=== PATIENT | male | born 1945 | race Caucasian/White ===

== ENCOUNTER 2017-05-14 13:42 | Emergency (ER) | payer MEDICARE, BC ==
[2017-05-14] MEDS ORDERED: 0.9 % SODIUM CHLORIDE 1,000 ML BAG IV ONE (13:48)
[2017-05-14] MEDS ORDERED: METHYLPREDNISOLONE PF 125MG/VIAL IVP ONE (13:48)
--- NOTE | 2017-05-14 13:49 | Emergency Department Record ---
History of Present Illness - General Stated Complaint: DIZZY Time Seen by Provider: 05/14/17 13:42 Source: Patient, EMS Mode of Arrival: Ambulatory Limitations: No limitations Travel/Exposure to [place] Within 21 Days of Symptoms: No - History of Present Illness Initial Comments: 72 yo female presents with syncope. The patient was stung by a bee about one hour ago. He stated he did not feel well afterward. He became lightheaded. He was outside walking the dog when he was stung. He came home and felt weak, lightheaded and dizzy. He did not get injured when he passed out. No report of seizure. No history of syncope. The bee stung him behind the left ear. NO hives. No chest pain. He has a history of HTN. No history of anaphylaxis. MD Complaint: Collapsed, Loss of consciousness -: Minutes(s) Prodromal Symptoms: Lightheaded Description of Event: Incontinence Witnessed: Yes - by bystander Injuries Sustained Associated with Event: None Current Symptoms: Lightheaded Context: Other (After a bee sting) Treatments Prior to Arrival: None, IV fluids - Related Data Home Medications Medication Instructions Recorded Confirmed Last Taken Amlodipine Besylate [Norvasc] 10 mg PO DAILY 05/14/17 05/14/17 05/14/17 Aspirin [Adult Low Dose Aspirin EC] 81 mg PO DAILY 05/14/17 05/14/17 05/14/17 Atorvastatin Calcium [Lipitor] 20 mg PO DAILY 05/14/17 05/14/17 05/14/17 Cetirizine HCl [Zyrtec] 10 mg PO DAILY 05/14/17 05/14/17 05/14/17 Fluticasone Propionate [Flonase] 2 spray EACH NARES DAILY 05/14/17 05/14/17 Lisinopril/Hydrochlorothiazide 1 each PO 05/14/17 05/14/17 [Lisinopril-Hctz 20-12.5 mg Tab] Omeprazole 20 mg PO 05/14/17 05/14/17 Previous Rx's Medication Instructions Recorded Diphenhydramine HCl [Benadryl] 25 mg PO Q6H #20 cap 05/14/17 Epinephrine [Epipen] 0.3 mg IM ASDIR PRN #2 syr 05/14/17 Prednisone [Prednisone 20Mg] 20 mg PO BID #14 tab 05/14/17 Allergies Allergy/AdvReac Type Severity Reaction Status Date / Time No Known Drug Allergies Allergy Verified 05/14/17 13:46 Review of Systems Constitutional: Denies: Chills, Fever, Malaise, Weakness Eyes: Denies: Eye discharge, Eye pain ENT: Denies: Congestion, Throat pain Respiratory: Reports: Dyspnea (initially felt some shortness of breath, now resolved). Denies: Cough, Hemoptysis, Stridor, Wheezes Cardiovascular: Reports: Syncope. Denies: Chest pain, Palpitations Endocrine: Denies: Fatigue, Polydipsia, Polyuria Gastrointestinal: Denies: Abdominal pain, Diarrhea, Nausea, Vomiting Genitourinary: Reports: As per HPI, Incontinence Musculoskeletal: Denies: Back pain, Joint swelling, Myalgia Skin: Denies: Bruising, Change in color, Rash Neurological: Reports: Vertigo. Denies: Headache, Numbness, Weakness Psychiatric: Denies: Anxiety Hematological/Lymphatic: Denies: Blood Clots, Easy bleeding, Easy bruising, Swollen glands Physical Exam - General General Appearance: Alert, Oriented x3, Cooperative, No acute distress Limitations: No limitations - Head Head exam: negative: Normal inspection (local sting site behind the left ear) Image of Face/Head: 1 - site of bee sting - Eye Eye exam: Normal appearance, PERRL. negative: Conjunctival injection, Periorbital swelling - ENT ENT exam: Normal exam, Mucous membranes moist Ear exam: Normal external inspection Nasal Exam: Normal inspection Mouth exam: Normal external inspection Throat exam: Normal inspection - Neck Neck exam: Normal inspection, Full ROM. negative: Tenderness - Respiratory Respiratory exam: Normal lung sounds bilaterally. negative: Respiratory distress - Cardiovascular Cardiovascular Exam: Regular rate, Normal rhythm, Normal heart sounds - GI/Abdominal GI/Abdominal exam: Soft. negative: Tenderness - Rectal Rectal exam: Deferred - exam: Deferred - Extremities Extremities exam: Normal inspection, Full ROM, Normal capillary refill. negative: Tenderness - Back Back exam: Reports: Normal inspection, Full ROM. Denies: Muscle spasm, Rash noted, Tenderness - Neurological Neurological exam: Alert, Normal gait, Oriented X3 - Psychiatric Psychiatric exam: Normal affect, Normal mood - Skin Skin exam: Other (local erythema at the site of the bee sting) Course - Reevaluation(s) Reevaluation #1: EKG 13:49 NSR rate of 97, intervals normal, axis normal, ST normal. No comparison 05/14/17 13:55 Reevaluation #2: The labs were reviewed No acute changes on the CBC and CMP. CR 1.3. 05/14/17 14:21 The Troponin is normal 05/14/17 14:31 Reevaluation #3: The patient continues to do well Will watch 4 hours to recheck enzymes given the syncope. He is asymptomatic. Mild swelling behind the left ear. No changes. 05/14/17 15:38 The patient continues to do well Waiting for 2nd set of cardiac enzymes 05/14/17 17:48 The patient is very eager to go He is doing very well without symptoms Repeat Troponin is negative His lungs are clear The site of the sting is very minimal He denies any symptoms 05/14/17 18:16 He will be prescribed Prednisone, Benadryl and Epipens 05/14/17 18:16 05/14/17 18:18 Medical Decision Making - Lab Data Result diagrams: 05/14/17 13:30 05/14/17 13:30 Disposition Disposition: Discharge Clinical Impression: Bee sting Qualifiers: Encounter type: initial encounter Injury intent: undetermined intent Qualified Code(s): T63.444A - Toxic effect of venom of bees, undetermined, initial encounter Syncope Qualifiers: Syncope type: unspecified Qualified Code(s): R55 - Syncope and collapse Disposition: Home, Self-Care Condition: (1) Good Instructions: Insect Bite or Sting (ED), Syncope (ED) Additional Instructions: Return if you have any return of dizziness, pass out, any new concerns or symptoms Take the Prednisone daily as directed You may take Benadryl 25mg every 4-6 hours if you have mild itching Call your doctor for close follow up this week Prescriptions: Diphenhydramine HCl [Benadryl] 25 mg PO Q6H #20 cap Epinephrine [Epipen] 0.3 mg IM ASDIR PRN #2 syr PRN Reason: Anaphylaxis Prednisone [Prednisone 20Mg] 20 mg PO BID #14 tab Time of Disposition: 18:18 Quality - Quality Measures Quality Measures: N/A - Blood Pressure Screening Does Patient Have Any of the Following: No Blood Pressure Classification: Pre-Hypertensive BP Reading Systolic Measurement: 125 Diastolic Measurement: 80 Screening for High Blood Pressure: < Pre-Hypertensive BP, F/U Documented > [ [id number]] Pre-Hypertensive Follow-up Interventions: Referral to alternative/primary care provider.
[2017-05-14 13:51] LABS: BASO % 0.1 % (0-6); EOS % 0.8 % (0-6); GRAN % 62.1 % (47-80); HEMATOCRIT 42.4 % (42.0-52.0); HEMOGLOBIN 14.7 gm/dl (14.0-18.0); LYMPH % 32.9 % (16-45); MEAN CELL VOLUME 95.5 fl (81-97); MEAN CORPUSCULAR HEMOGLOBIN 33.1 pg (27-33); MEAN CORPUSCULAR HGB CONC 34.7 g/dl (32-36); MONO % 4.1 % (0-9); PLATELET COUNT 353 K/uL (130-400); RED BLOOD COUNT 4.44 M/uL (4.40-5.70); RED CELL DISTRIBUTION WIDTH 13.9 % (11.5-14.5); WHITE BLOOD COUNT W/O DIFF 8.6 K/uL (4.2-12.2)
[2017-05-14 14:04] LABS: INR 0.93; PARTIAL THROMBOPLASTIN TIME 22.7 SECONDS (24.5-39.1)
[2017-05-14 14:09] LABS: ALB/GLOB RATIO 1.7 (1.1-1.8); ALBUMIN 4.7 gm/dL (3.5-5.0); ALKALINE PHOSPHATASE 82 U/L (38-126); ALT/SGPT 41 U/L (21-72); ANION GAP 10.4 (7-16); AST/SGOT 20 U/L (17-59); BILIRUBIN,TOTAL 1.01 mg/dL (0.2-1.3); BLOOD UREA NITROGEN 21 mg/dL (9-20); CARBON DIOXIDE 23.6 mmol/L (22-30); CREATININE 1.3 mg/dL (0.66-1.25); EST GLOMERULAR FILTRATION RATE 58 ml/min; GLUCOSE,RANDOM 119 mg/dL (70-110); TOTAL PROTEIN 7.4 gm/dL (6.3-8.2)
[2017-05-14 14:23] LABS: TROPONIN I < 0.012 ng/mL (0.00-0.034)
[2017-05-14] MEDS ORDERED: DIPHENHYDRAMINE HCL IV 50 MG/ML VIAL IVP ONE (14:51)
--- NOTE | 2017-05-15 12:50 | CT SCAN REPORT ---
EXAM: HEAD CT WITHOUT CONTRAST HISTORY: SYNCOPE, DIZZINESS AFTER BEE STING. TECHNIQUE: Contiguous axial images from the cerebral convexities to the foramen magnum were obtained without contrast. Comparison: None. Hand dominance: Right. Encounter: Initial. FINDINGS: The brain volume is normal. No acute intracranial hemorrhage, mass effect, or midline shift. No CT evidence of acute infarct. The ventricles, basal cisterns, and sulci are within normal limits. Moderate calcification of the cavernous segments of the internal carotid arteries. Osseous structures and paranasal sinuses are unremarkable. IMPRESSION: NO ACUTE INTRACRANIAL PROCESS. JOB NUMBER: [id number] MTDD
== END 2017-05-14 18:29 | disposition home or self-care (01) ==
LOC: ER 13:42
DX: T63.444A Toxic effect of venom of bees, undetermined, initial encounter (principal); R55 Syncope and collapse; I10 Essential (primary) hypertension
CPT/HCPCS: 70450; 80053; 84484; 85025; 85610; 85730; 93005; 93010; 96361; 96374; 96375; 99284; J1200; J2930; J7030